=== PATIENT | female | born 1985 | race Caucasian/White ===

== ENCOUNTER 2017-04-17 19:46 | Inpatient (IN) | payer MEDICAID ==
[~2017-04-17] VITALS: Ht 152.4 cm; Wt 54.5 kg
--- NOTE | ~2017-04-17 | DS ---
PATIENT:RENETTA DIAZ :83 MEDICAL RECORD: [id number] DISCHARGE SUMMARY ADMISSION DATE: 04/17/17 DISCHARGE DATE: 04/18/17 DATE OF ADMISSION: 04/17/2017. DATE OF DISCHARGE: 04/18/2017. ADMISSION DIAGNOSES: 1. Acute cholecystitis. 2. Anemia. DISCHARGE DIAGNOSES: 1. Acute cholecystitis. 2. Anemia. PROCEDURE: None. REPORT OF HOSPITALIZATION: The patient was admitted to the hospital through the ER with right upper quadrant pain and findings consistent with acute cholecystitis. By the following morning, the patient was feeling much better and wished to go home. The patient was told that her surgery would not be an accomplished until after the weekend, so the patient chose to go home at that point instead of staying over at that time. The patient was tolerating a diet and could keep her pills down, so she was discharged home on p.o. antibiotics and set up for surgery the following Friday. DISCHARGE INSTRUCTIONS: Return to the ER or call the clinic with any questions or concerns, fevers, chills, nausea, vomiting or worsening abdominal pain. ACTIVITIES: As tolerated. FOLLOWUP: Friday in the operating room. DISCHARGE MEDICATIONS: Resume home medications with the inclusion of Levaquin 750 mg daily and [place] 10s as needed. TRANSINT:[id number] Voice Confirmation ID: [id number] DOCUMENT ID: [id number] TIFFANIE BORRERO MD at 0922 CC: [id number] DICTATION DATE: 05/13/17 1355 [place] OPERATOR: 05/13/17 1427 [facility] 04/18/17 [place] [id number] [place] [id number]
[2017-04-17 20:27] LABS: BASOPHILS 0.3 % (0-2); EOSINOPHILS 4.8 % (0-7); HEMATOCRIT 37.5 % (36.0-48.0); HEMOGLOBIN 11.4 g/dL (12-16); IMMATURE GRANULOCYTES 0.2 % (0-5); LYMPHOCYTES 17.9 % (15-50); MCH 24.5 pg (26.0-34.0); MCHC 30.4 g/dL (31.0-37.0); MCV 80.5 fL (80.0-100.0); MEAN PLATELET VOLUME 9.4 fL (7.4-10.4); MONOCYTES 11.9 % (2-11); NEUTROPHILS 64.9 % (40-80); PLATELET COUNT 253 10x3/uL (130-400); RBC 4.66 10x6/uL (4.00-5.40); RDW 20.6 % (11.5-14.5); WBC 9.7 10x3/uL (4.8-10.8)
[2017-04-17 20:36] LABS: APPEARANCE CLEAR (CLEAR); BILIRUBIN NEGATIVE (NEGATIVE); COLOR YELLOW (YELLOW); GLUCOSE NEGATIVE (NEGATIVE); KETONE NEGATIVE (NEGATIVE); NITRITE NEGATIVE (NEGATIVE); PROTEIN NEGATIVE (NEGATIVE); SPECIFIC GRAVITY 1.025 (1.005-1.020); UROBILINOGEN NORMAL (NORMAL)
[2017-04-17 20:44] LABS: ALBUMIN 3.7 g/dL (3.4-5.0); ALKALINE PHOSPHATASE 73 U/L (46-116); ALT (SGPT) 16 U/L (10-68); AMYLASE - SERUM 48 U/L (25-115); BILIRUBIN - TOTAL 0.12 mg/dL (0.2-1.3); CALC OSMOLALITY 283 mosm/kg (275-300); CALCIUM 8.9 mg/dL (8.5-10.1); CARBON DIOXIDE 26.4 mmol/L (21.0-32.0); CHLORIDE - SERUM 106 mmol/L (98-107); CREATININE - SERUM 0.9 mg/dL (0.6-1.3); GLUCOSE 128 mg/dL (74-106); LIPASE 118 U/L (73-393); POTASSIUM - SERUM 4.2 mmol/L (3.5-5.1); PROTEIN - SERUM 7.6 g/dL (6.4-8.2); SODIUM 142 mmol/L (136-145); UREA NITROGEN 11 mg/dL (7-18); eGFR NON AFRICAN AMERICAN 77 mL/min (90-120)
[2017-04-18] MEDS ORDERED: COLACE100 MG PO (00:45)
[2017-04-18] MEDS ORDERED: BENTYL10 MG PO (00:45)
[2017-04-18] MEDS ORDERED: ZANTAC150 MG PO (00:45)
[2017-04-18 00:46] VITALS: BP 113/52; BMI 23.4
[2017-04-18 04:00] VITALS: BP 95/50
[2017-04-18 05:37] LABS: BASOPHILS 0.3 % (0-2); EOSINOPHILS 7.3 % (0-7); HEMATOCRIT 34.1 % (36.0-48.0); HEMOGLOBIN 10.2 g/dL (12-16); IMMATURE GRANULOCYTES 0.1 % (0-5); LYMPHOCYTES 36.3 % (15-50); MCH 23.9 pg (26.0-34.0); MCHC 29.9 g/dL (31.0-37.0); MEAN PLATELET VOLUME 9.2 fL (7.4-10.4); PLATELET COUNT 215 10x3/uL (130-400); RBC 4.26 10x6/uL (4.00-5.40); RDW 20.7 % (11.5-14.5)
[2017-04-18 05:52] LABS: WBC 6.8 10x3/uL (4.8-10.8)
[2017-04-18 05:56] LABS: ALKALINE PHOSPHATASE 50 U/L (46-116); ALT (SGPT) 12 U/L (10-68); CALCIUM 7.8 mg/dL (8.5-10.1); CARBON DIOXIDE 24.1 mmol/L (21.0-32.0); CHLORIDE - SERUM 112 mmol/L (98-107); CREATININE - SERUM 0.7 mg/dL (0.6-1.3); GLUCOSE 89 mg/dL (74-106); POTASSIUM - SERUM 3.7 mmol/L (3.5-5.1); PROTEIN - SERUM 5.7 g/dL (6.4-8.2); SODIUM 144 mmol/L (136-145); eGFR NON AFRICAN AMERICAN > 90 mL/min (90-120)
[2017-04-18 05:59] LABS: ALBUMIN 2.7 g/dL (3.4-5.0); CALC OSMOLALITY 283 mosm/kg (275-300); UREA NITROGEN 8 mg/dL (7-18)
[2017-04-18 08:16] VITALS: Ht 152.4 cm; Wt 54.5 kg
[2017-04-18] MEDS ORDERED: HYDROCODONE-APA1 TAB PO (08:18)
[2017-04-18] MEDS ORDERED: LEVAQUIN750 MG PO (08:18)
[2017-04-18 08:43] VITALS: BP 99/52
== END 2017-04-18 10:23 | disposition home or self-care (01) | DRG 446 ==
LOC: D.ER 19:46 → D.EDHOLD 23:09 → D.MS 23:09
PROVIDERS: Family Medicine
DX: K81.0 Acute cholecystitis (principal)

== ENCOUNTER 2017-04-21 10:26 | Day surgery (SDC) | payer MEDICAID ==
[~2017-04-21] VITALS: Ht 152.4 cm; Wt 54.4 kg
--- NOTE | ~2017-04-21 | OP ---
PATIENT NAME: RENETTA DIAZ MEDICAL RECORD: [id number] :83 LOCATION:[facility] ADMISSION DATE: SURGEON: ALLI BORRERO MD DATE OF OPERATION: 04/21/2017 PREOPERATIVE DIAGNOSES: 1. Acute cholecystitis. 2. IBS. POSTOPERATIVE DIAGNOSES: 1. Acute cholecystitis. 2. IBS. PROCEDURE: Laparoscopic cholecystectomy. SURGEON: Alli Borrero MD REPORT OF PROCEDURE: The patient's abdomen was prepped and draped in sterile fashion. A cutdown was made on the inferior aspect of the umbilicus in a semicircular fashion. Electrocautery was used to dissect through the subcutaneous tissues and underneath the umbilicus. The patient was noted to have a small fat-containing umbilical hernia that was about 0.5 cm in size. We extended this opening superiorly and inferiorly and bluntly entered the abdominal cavity. Then, 0 Vicryls were placed on the fascia bilaterally and the 12-mm Sharyn trocar was inserted. After insufflation was obtained, a 5-mm trocar was placed in the epigastrium and 2 more 5-mm trocars were placed in the right subcostal region. The gallbladder was grasped and elevated. It was noted to be acutely inflamed. The adhesions that were present were taken down with electrocautery and blunt dissection. The cystic artery and cystic duct were dissected free and these were clipped proximally and distally and ligated in standard fashion. The gallbladder was taken off the liver bed using electrocautery and placed in the right upper quadrant. Any bleeding from the liver bed was then treated with electrocautery. We irrigated out the right upper quadrant and assured there was no sign of any bleeding or bile leakage. At this point, the ports and insufflation were then removed and the gallbladder was taken out through the umbilicus. The umbilical fascia was closed with interrupted 0 Vicryls times 4. The wounds were then irrigated out with normal saline, infused with 10 mL of 0.25% Marcaine with epinephrine. The skin incisions were all closed with subcutaneous 5-0 Monocryl and dressed appropriately. COMPLICATIONS: None. CONDITION: Stable. ANESTHESIA: General endotracheal and local. BLOOD LOSS: Minimal. TRANSINT:[id number] Voice Confirmation ID: [id number] DOCUMENT ID: [id number] OPERATIVE REPORT [id number] RADHARENETTA CHAMBERLAIN ALLI BORRERO MD at 1413 CC: [id number] DICTATION DATE: 04/21/17 1455 MANAGER MANAGED BACKUP SERVICES: 04/21/17 1518 [facility] 04/21/17 [place] [id number] [place] [address]
[~2017-04-21 10:26] MED LIST: BENTYL10 MG PO; COLACE100 MG PO; HYDROCODONE-APA1 TAB PO; LEVAQUIN750 MG PO; ZANTAC150 MG PO
[2017-04-21 11:00] LABS: BASOPHILS 0.4 % (0-2); HEMATOCRIT 37.3 % (36.0-48.0); HEMOGLOBIN 11.4 g/dL (12-16); IMMATURE GRANULOCYTES 0.2 % (0-5); MCH 24.6 pg (26.0-34.0); MCHC 30.6 g/dL (31.0-37.0); MCV 80.4 fL (80.0-100.0); MEAN PLATELET VOLUME 8.7 fL (7.4-10.4); NEUTROPHILS 48.4 % (40-80); PLATELET COUNT 238 10x3/uL (130-400); RBC 4.64 10x6/uL (4.00-5.40); RDW 20.6 % (11.5-14.5); WBC 5.6 10x3/uL (4.8-10.8)
[2017-04-21 11:05] VITALS: BP 110/66; Ht 152.4 cm; Wt 54.4 kg
[2017-04-21 11:07] LABS: CALC OSMOLALITY 279 mosm/kg (275-300); CALCIUM 8.9 mg/dL (8.5-10.1); CARBON DIOXIDE 27.5 mmol/L (21.0-32.0); CHLORIDE - SERUM 105 mmol/L (98-107); CREATININE - SERUM 0.8 mg/dL (0.6-1.3); GLUCOSE 91 mg/dL (74-106); SODIUM 141 mmol/L (136-145); UREA NITROGEN 11 mg/dL (7-18); eGFR NON AFRICAN AMERICAN 88 mL/min (90-120)
[2017-04-21 13:12] LABS: HCG URINE NEGATIVE (NEGATIVE)
[2017-04-21] MEDS ORDERED: ULTRAM50 MG PO (14:45)
== END 2017-04-21 16:50 | disposition home or self-care (01) ==
LOC: D.OPS 10:26 → D.PAN 13:00 → D.OPS 16:50
PROVIDERS: Surgery
DX: K81.0 Acute cholecystitis (principal); K58.9 Irritable bowel syndrome, unspecified; K21.9 Gastro-esophageal reflux disease without esophagitis; Z01.812 Encounter for preprocedural laboratory examination